=== PATIENT | male | born 1935 | race Caucasian/White ===

== ENCOUNTER 2016-10-12 07:21 | Day surgery (SDC) | payer MEDICARE ==
[~2016-10-12 07:21] MED LIST: ACETAMINOPHEN 325 MG TABLET PO PRN; ACETYLCHOLINE CHLORIDE 20 DROP KIT IO PRN; BUPIVACAINE HCL/PF 30 ML VIAL IJ PRN; CYCLOPENTOLATE HCL 20 DROP BTL RIGHTEYE PRN; DEXTROSE 5%-0.5 NORMAL SALINE 1,000 ML IV PRN; EPINEPHrine 1 MG/ML AMPUL IO PRN; HYALURONATE SODIUM 0.4 ML DISP.SYRIN IO PRN; HYALURONATE SODIUM 0.85 ML DISP.SYRIN IO PRN; LIDOCAINE HCL/PF 200 MG/5 ML AMPUL TP PRN; LIDOCAINE HCL/PF 5 ML VIAL IO PRN; NORMAL SALINE 3 ML BOX IV PRN; TETRACAINE HCL 150 DROP BTL OP PRN
[2016-10-12] MEDS: PHENYLEPHRINE HCL 50 DROP BTL RIGHTEYE PRN ×3 (08:16→08:40)
[2016-10-12] MEDS: TROPICAMIDE 150 DROP BTL RIGHTEYE PRN ×3 (08:16→08:40)
[2016-10-12] MEDS ORDERED: RINGER'S SOLUTION,LACTATED 1,000 ML IV ONE (08:39)
[2016-10-12 10:55] VITALS: BP 105/68
== END 2016-10-12 07:22 | disposition home or self-care (01) ==
LOC: AMB 07:21
PROVIDERS: ATTEND Ophthalmology
PROC: 08RJ3JZ Replacement of Right Lens with Synthetic Substitute, Percutaneous Approach (ICD-10-PCS; principal; 2016-10-12 09:30)
DX: H26.9 Unspecified cataract (principal); I10 Essential (primary) hypertension; E11.9 Type 2 diabetes mellitus without complications; I48.91 Unspecified atrial fibrillation; E78.5 Hyperlipidemia, unspecified; Z87.891 Personal history of nicotine dependence; Z68.31 Body mass index [BMI] 31.0-31.9, adult

== ENCOUNTER 2016-11-09 06:46 | Day surgery (SDC) | payer MEDICARE ==
[~2016-11-09 06:46] MED LIST changes: +CYCLOPENTOLATE HCL 20 DROP BTL LEFTEYE PRN; -CYCLOPENTOLATE HCL 20 DROP BTL RIGHTEYE PRN
[2016-11-09] MEDS: TROPICAMIDE 150 DROP BTL LEFTEYE PRN ×3 (07:05→07:32)
[2016-11-09] MEDS: PHENYLEPHRINE HCL 50 DROP BTL LEFTEYE PRN ×3 (07:05→07:32)
[2016-11-09] MEDS ORDERED: RINGER'S SOLUTION,LACTATED 1,000 ML IV ONE (07:25)
[2016-11-09 09:32] VITALS: BP 128/63
== END 2016-11-09 06:47 | disposition home or self-care (01) ==
LOC: AMB 06:46
PROVIDERS: ATTEND Ophthalmology
PROC: 08RK3JZ Replacement of Left Lens with Synthetic Substitute, Percutaneous Approach (ICD-10-PCS; principal; 2016-11-09 08:00)
DX: H26.9 Unspecified cataract (principal); I10 Essential (primary) hypertension; E11.9 Type 2 diabetes mellitus without complications; I48.91 Unspecified atrial fibrillation; E78.5 Hyperlipidemia, unspecified; Z87.891 Personal history of nicotine dependence; Z68.31 Body mass index [BMI] 31.0-31.9, adult